=== PATIENT | female | born 1940 | race Caucasian/White ===

== ENCOUNTER → 2016-11-14 | Outpatient (CLI) | payer OTHER ==
[~2016-11-14] MED LIST: ASPIRIN EC81 M1 PO; AZELASTINE137 MCG/0. NASAL; BENADRYL25 MG PO; CALCIUM 600 +1 EAC1 PO; CIPRO500 MG PO; COLACE100 MG PO; CREON 10 CAPSUL1 CA1 PO; FISH OIL 1,001000 M2 PO; FLONASE 0.05%50 MCG NASAL; LIPO-FLAVONOID1 EACH PO; NEXIUM40 MG PO; PREMARIN0.45 MG PO; PROTONIX40 M1 PO; SPIRIVA INH; VITAMIN D2000 UNIT PO; XANAX 0.25 MG0.25 MG PO
== END ==
LOC: CAT 10:22
DX: K44.9 Diaphragmatic hernia without obstruction or gangrene (principal); M47.896 Other spondylosis, lumbar region